=== PATIENT | female | born 1950 | race Two or more races ===

== ENCOUNTER 2024-09-27 09:05 | Inpatient (IN) | payer OTHER ==
[~2024-09-27] VITALS: Ht 152.4 cm; Wt 74.1 kg
[~2024-09-27 09:05] MED LIST: ALBUAER3 IN; LOSA-535 PO; PRAV20TA3 PO
[2024-09-27] MEDS: ceFAZolin 2 GM/D5W100ml 100 ML IV ONE (09:19)
[2024-09-27] MEDS: CELECOXIB 100 MG CAP ONE (09:37)
[2024-09-27] MEDS: PREGABALIN CAPSULE 75 MG CAP ONE (09:38)
[2024-09-27] MEDS: ROPIVACAINE 0.5% (5MG/ML) 20ML AMPULE IJ ONE (11:10)
[2024-09-27] MEDS ORDERED: fentaNYL CITRATE 100 MCG/2 ML VL ONE (11:11)
[2024-09-27] MEDS ORDERED: MIDAZOLAM HCL 2MG/2ML 2ml VIAL (1mg/ml) ONE (11:12)
[2024-09-27] MEDS ORDERED: PROPOFOL 10 MG/ML 20 ML IV ONE (11:13)
[2024-09-27] MEDS: TRANEXAMIC ACID 20 ML ONE (11:16)
[2024-09-27] MEDS: KETOROLAC TROMETH 30 MG/ML 1ML VIAL ONE (11:17)
[2024-09-27] MEDS ORDERED: MORPHINE SULF PF 5 MG/10 ML VIAL ONE (11:25)
[2024-09-27] MEDS: CELECOXIB 100 MG CAP PO ONE (11:40)
[2024-09-27] MEDS: PREGABALIN CAPSULE 75 MG CAP PO ONE (11:40)
[2024-09-27] MEDS ORDERED: ePHEDrine SULFATE 50 MG/ML AMP ONE (12:16)
[2024-09-27] MEDS: BUPIVACAINE HCL 0.25% P/F 10 ML VIAL ONE (12:55)
[2024-09-27] MEDS: VANCOMYCIN HCL 1000 MG VL ONE (12:55)
[2024-09-27] MEDS ORDERED: HYDROmorphone HCL 2 MG/ML VL/or syr IV PRN (13:45)
[2024-09-27] MEDS ORDERED: hydrALAZINE HCL 20 MG/ML VL IV PRN (13:45)
[2024-09-27] MEDS ORDERED: DOCUSATE SOD 100 MG CAP PO PRN (15:45)
[2024-09-27] MEDS: SODIUM CHLORIDE 0.9% 1,000 ML IV SCH (15:53)
--- NOTE | 2024-09-27 15:56 | DVHHP2 ---
History of Present Illness Reason for Visit: Right knee osteoarthritis History of Present Illness Estefany Carlisle is a 74-year-old female with past medical history of hypertension, hyperlipidemia, asthma, bilateral cataract surgery, hernia repair, tonsillectomy, and breast augmentation who had a right TKA today. Patient is currently in recovery bed 3. Patient currently reports 0/10 pain also denies smoking, marijuana use, illicit drug use, drinking, chest pain, shortness of breath, fever, chills, nausea, vomiting, diarrhea, lightheadedness, and dizziness. Cardiovascular: HTN, hyperipidemia Pulmonary: Asthma Past Medical History bilateral cataract surgery Past Surgical History: Hernia Repair, Other (Breast augmentation), Tonsillec danyelle Family History: None Smoke: No ALCOHOL: none Drugs: None Lives: with Family Domestic Violence: Neg Review of Systems Constitutional: No: Fever, Chills, Sweats, Weakness, Malaise, Other Eyes: No: Pain, Vision change, Conjunctivae inflammation, Eyelid inflammation, Other, Redness ENT: No: Ear pain, Ear discharge, Nose pain, Nose discharge, Nose congestion, Mouth pain, Mouth swelling, Throat pain, Throat swelling, Other Respiratory: No: Cough, Dry, Shortness of breath, SOB with excertion, Wheezing, Hemoptysis, Pleuritic Pain, Sputum, Wheezing, Other Cardiovascular: No: Chest Pain, Palpitations, Orthopnea, Paroxysmal Noc. Dyspnea, Edema, Lt Headedness, Other Gastrointestinal: No: Nausea, Vomiting, Abdominal Pain, Diarrhea, Constipation, Melena, Hematochezia, Other Genitourinary: No Dysuria, No Frequency, No Incontinence, No Hematuria, No Re tention, No Other Musculoskeletal: No: other, neck pain, shoulder pain, arm pain, back pain, hand pain, leg pain, foot pain Skin: No: Rash, Lesions, Jaundice, Bruising, Other Neurological: No: Weakness, Numbness, Incoordination, Change in speech, Confusion, Seizures, Other Allergies: Coded Allergies: Acetaminophen (Verified Allergy, Severe, tongue swells, SOB, hives, 09/23/24) Dextromethorphan (Unverified Allergy, Severe, tongue swells, SOB, hives, 09/23/24) Doxylamine (Unverified Allergy, Severe, tongue swells, SOB, hives, 1 11/24/23) Ethanol (Unverified Allergy, Severe, tongue swells, SOB, hives, 09/23/24) Pseudoephedrine (Unverified Allergy, Severe, tongue swells, SOB, hives, 09/23/24) Medications Current Medications Medications Dose Ordered Sig/Shweta Route Start Time Stop Time Status Last Admin Dose Admin Sodium Chloride 1,000 ml @ 60 mls/hr [id number] IV 09/27/24 15:45 UNV Ondansetron HCl 4 mg Q4HP PRN IV 09/27/24 15:45 UNV Docusate Sodium 100 mg BIDPRN PRN PO 09/27/24 15:45 UNV Morphine Sulfate 2 mg Q4HPRN PRN IV 09/27/24 15:45 UNV Exam Vital Signs Vital Signs Date Time Temp Pulse Resp B/P (MAP) Pulse Ox O2 Delivery O2 Flow Rate FiO2 09/27/24 15:10 88 16 117/64 (81) 99 09/27/24 13:50 Room Air 09/27/24 13:27 8.0 09/27/24 13:27 97.3 97.3 General Appearance: Alert, Oriented X3, Cooperative, No acute distress HEENT: Atraumatic, PERRLA, EOMI, Mucous membr. moist/pink Respiratory: Clear to auscultation, Normal air movement Cardiovascular: Regular rate, Normal S1, Normal S2, No murmurs Abdominal: No tenderness, No hepatospenomegaly Extremities: No clubbing, No cyanosis, No edema, Normal pulses, No tenderness/swelling Skin: No rashes, No breakdown, No significant lesion Neuro: Normal speech, Normal tone, Sensation intact Psych/Mental Status: Mental status NL, Mood NL Assessment/Plan Assessment/Plan Assessment/Plan: Right TKA History of right knee osteoarthritis am labs stool softeners pain mgmt antiemetics keep dressing cdi HTN continue home meds Asthma resp txs HLD continue home meds FEN/PPX diet - adat ivf scds pud ppx not indicated no hx of GERD rounding team ask if want anticoags Discussed plan of care with patient and nurse Home medications reconciled Admit to tele Plan discussed with: Patient My Orders Orders - ALLEN OCHOA Procedure Category Date Status Time Admit ADMIT 09/27/24 Transmitted 15:31 Allergies LUANNE 09/27/24 Transmitted 15:31 Code Status CODE 09/27/24 Transmitted 15:31 Sodium Chloride 0.9% PHA 09/27/24 Logged 15:45 Ondansetron Hcl PHA 09/27/24 Logged (Zofran) 15:45 Docusate Sodium PHA 09/27/24 Logged Capsule (Colace 15:45 Clear Liq Diet DIET 09/27/24 Transmitted Dinner Morphine Sulfate PHA 09/27/24 Logged Injection 15:45 Complete Blood Count LAB 09/28/24 Verified 04:00 Basic Metabolic Panel LAB 09/28/24 Verified 04:00 Date of Service: Sep 27, 2024 Billing Provider: ALLEN OCHOA Common Visit Codes: [id number] INP/OBS CARE (MOD) ALLEN OCHOA Sep 27, 2024 15:56
[2024-09-27] MEDS ORDERED: ALBUTEROL SULF 2.5 MG/0.5ML(0.5%) NEB SOLN NEB PRN (16:00)
[2024-09-27] MEDS ORDERED: IPRATROPIUM BROM 0.5 MG/2.5ML INH SOL NEB PRN (16:00)
[2024-09-27] MEDS: ONDANSETRON HCL 4 MG/2 ML VIAL IV ONE (16:11)
[2024-09-27 16:28] VITALS: BP 155/88; PULSE 108; RESP 18; TEMP 97.2; O2SAT 91
[2024-09-27 16:47] VITALS: BP 155/88; PULSE 113; RESP 16; TEMP 97.2; O2SAT 89
[2024-09-27 20:00] VITALS: PULSE 104; PULSE 94; RESP 17; O2SAT 94
[2024-09-27 20:40] VITALS: BP 114/67; PULSE 68; RESP 18; TEMP 98.2; O2SAT 94
[2024-09-27 21:00] VITALS: BP 121/86; PULSE 104; RESP 17; TEMP 98.1; O2SAT 94
[2024-09-28] VITALS (10 sets, daily range): BP systolic 103–140; BP diastolic 53–79; PULSE 60–107; RESP 16–20; TEMP 98.2–99.6; O2SAT 92–95
[2024-09-28] MEDS: MORPHINE SULFATE INJ 2 MG/ml SYRG IV PRN (06:21)
[2024-09-28] MEDS: ONDANSETRON HCL 4 MG/2 ML VIAL IV PRN (06:21)
--- NOTE | 2024-09-28 06:29 | DVHOP2 ---
Operative Report - 2 Report Details Date: 09/27/24 Preop Diagnosis: Right knee osteoarthritis Postop Diagnosis: as above Surgeon: Will LOPEZ Stage Driver: Te JACKSON Anesthesiologist: Cassandra LOPEZ Anesthesia: General, Regional Implant: [employer] see implant log Consent: The patient was informed of the risks and benefits of the procedure. These include but are not limited to complications of anesthesia, postoperative infection, incomplete relief of symptoms, recurrence of symptoms, damage to blood vessels, nerves and tendons, deep venous thrombosis, pulmonary embolism and possible need for repeat surgery in the future. Estimated Blood Loss: 50 cc Name of Procedure Performed Right total knee arthroplasty with computer navigation Procedure Details Procedure Details: FINDINGS: degenerative disease with grade IV changes with valgus deformity INDICATION: This patient has failed non-operative treatments for knee arthritis and is now indicated for a total knee replacement. Preoperatively in the waiting area as well as in the office, I had a long discussion with the patient regardi ng the plan, the expected outcome, the risks, benefits, and alternatives of surgery. The risks include, but are not limited to, infection (which may require future surgery and removal of implants) , bleeding (which may require a transfusion), damage to nerves, arteries, veins, tendons, muscles and other adjacent structures. Also discussed the possibilities of intraoperative fractur es, implant loosening, heterotopic bone formation, and revision for variety of reasons, and medical complications etc. This was discussed at length and consent has been obtained. DESCRIPTION OF PROCEDURE: In the preoperative holding area, the consent was reviewed and the appropriate extremity was verified by the patient and marked with my initials. The patient was then transferred to the operating theatre. Appropriate anesthesia was induced. All bony prominences were well padded. A time out was performed verifying the side and site of surgery according to standard protocol. Preoperative antibiotics were given 10 minutes prior to tourniquet inflation. Tranexamic was given. A well padded thigh tourniquet was applied. The extremity was then prepped and draped in the usual sterile fashion. The extremity was exsanguinated and the tourniquet was inflated. We then made a mid-line incision, which we continued to the underlying capsular tissue. We performed a medial parapatellar arthrotomy. We periosteally exposed the proximal tibia, excised the anterior fat pad and synovium from the distal aspect of the femur. We then subluxed the patella and brought the knee up into flexion. The lateral meniscus, ACL, and PCL were released. We used the appropriate guide with attached computer navigation to secure the distal femoral cutting block to the femur with pins and completed the distal femoral cut in 0 degrees to the mechanical axis with an oscillating saw. We removed the distal femoral cutting block and turned our attention to the tibia. We used the extramedullary tibial alignment guide with computer navigation to secure the proximal tibial cutting block to the tibia with pins, setting it for a 1mm cut from the more involved side, medially and completed the proximal tibial cut. We then used the spacer block and alignment remigio to check the varus- valgus angle of our cuts and the extension gap. We marked our femoral anatomy, including Nicholas's line and the epicondylar axis. Using that as a rotational guide, we used the sizing guide to size our femur properly, using a stylus to ensure there would be no notching. We then used the AP cutting guide to make our anterior and posterior cuts and chamfer cuts with an oscillating saw. We again checked the flexion and extension gaps and coronal balancing. Next, we sized our tibia and secured a baseplate with appropriate rotation with pins. We placed a trial femur in position and completed preparation of the notch with reamers and box osteotome and placed a t rial notch in position. We used trials to choose our liner size and then placed the liner in place and reduced the knee . At this point, we checked our seven parameters: 1) Limb alignment 2) Extension 3) Flexion against gravity 4) Flexion stability 5) Varus-valgus balancing 6) Component rotation 7) Patella tracking We were satisfied with these and removed all trials with the exception of the baseplate. We completed preparation of the tibia with the appropriate reamer and keel impactor and then removed the baseplate. We placed a bone plug in the distal femur and then irrigated and dried all bony surfaces and injected our pain cocktail. Cement with antibiotics was hand-mixed on the back table. We thumb impacted cement into the proximal tibia, distal femur impacted our tibial, femoral components into position. Excess cement was removed with curettes. We impacted our liner and reduced the knee and held it with axial loading until all cement hardened. We did a phoebe-articular cocktail block Once all cement had hardened, we brought the knee back up into flexion and used an osteotome to remove excess cement. We released the tourniquet and achieved hemostasis where necessary. A dilute betadine solution (17.5mL in 500mL saline) was used to wash the joint and left to sit for 3 minutes. This was then irrigated out with copious amounts of pulse lavage. We sprinkled 1g vancomycin powder below the fascia and 1g above the fascia. We copiously irrigated the knee. We re-checked our seven parameters. We closed our capsular incision with a PDS style suture. We irrigated further. We closed the subcutaneous tissue with Vicryl suture and re-approximated the skin with [place]. We verified all lower extremity compartments were soft and compressible and that we had intact distal pulses. We wrapped the extremity in sterile Webril and gurvinder bandage. The patient was transferred to the recovery room in stable condition. Condition Good Disposition Still a Patient JACKSON GUERRERO MD Sep 28, 2024 06:29
[2024-09-28 06:58] LABS: Anion Gap 8 (5-15); Carbon Dioxide 26 mmol/L (20-31); Potassium 4.5 mmol/L (3.5-5.1); Sodium 142 mmol/L (136-145)
[2024-09-28 07:00] LABS: Calcium 9.3 mg/dL (8.7-10.4)
[2024-09-28 07:01] LABS: Chloride 108 mmol/L (98-107)
[2024-09-28 07:05] LABS: BUN/Creatinine Ratio 8.6 (10.0-20.0)
[2024-09-28 07:06] LABS: Basophils # (auto) 0.1 10 ^3/uL (0-0.2); Basophils % (auto) 0.7 % (0.0-2.0); Eosinophils # (auto) 0.1 10 ^3/uL (0-0.8); Eosinophils % (auto) 0.7 % (0.0-7.0); Hematocrit 36.6 % (36.0-46.0); Hemoglobin 12.6 g/dL (12.2-16.2); Lymphocytes # (auto) 1.1 10 ^3/uL (0.4-5.4); Lymphocytes % (auto) 12.8 % (10.0-50.0); Mean Corpuscular Hemoglobin 31.6 pg (28.0-32.0); Mean Corpuscular Hgb Conc. 34.4 g/dL (32.0-36.0); Mean Corpuscular Volume 91.9 fL (80.0-100.0); Monocytes % (auto) 11.3 % (0.0-12.0); Neutrophils # (auto) 6.5 10 ^3/uL (1.6-8.6); Neutrophils % (auto) 74.5 % (37.0-80.0); Platelet Count (auto) 195 10^3/uL (140-450); Red Blood Cells 3.99 10^6/uL (4.0-5.20); Red Cell Distribution Width 12.8 % (11.8-14.3); White Blood Cell 8.7 10^3/uL (4.4-10.8)
[2024-09-28 07:07] LABS: Blood Urea Nitrogen 7 mg/dL (9-23); Glucose 117 mg/dL (74-106)
[2024-09-28] MEDS: PRAVASTATIN SODIUM 20 MG TAB PO SCH (09:00)
[2024-09-28] MEDS: LOSARTAN POTASSIUM 50 MG TAB PO SCH (09:01)
[2024-09-28] MEDS ORDERED: PATIENTS OWN MEDICATION (Losartan Potassium 100 MG) PO SCH (10:00)
--- NOTE | 2024-09-28 12:17 | DVHPN2 ---
Reviewed: Care Plan, H&P, Labs, Medications, Previous Orders, Radiology Changes from previous H/P or p: No Changes Eyes: No Pain, No Vision change, No Conjunctivae inflammation, No Eyelid inflammation, No Other, No Redness ENT: No Ear pain, No Ear discharge, No Nose pain, No Nose discharge, No Nose congestion, No Mouth pain, No Mouth swelling, No Throat pain, No Throat swelling, No Other Cardiovascular: No Chest Pain, No Palpitations, No Orthopnea, No Paroxysmal Noc. Dyspnea, No Edema, No Lt Headedness, No Other Respiratory: No Cough, No Dry, No Shortness of breath, No SOB with excertion, No Wheezing, No Hemoptysis, No Pleuritic Pain, No Sputum, No Other Gastrointestinal: No Nausea, No Vomiting, No Abdominal Pain, No Diarrhea, No Constipation, No Melena, No Hematochezia, No Other Genitourinary: No Dysuria, No Frequency, No Incontinence, No Hematuria, No Retention, No Other Musculoskeletal: No other, No neck pain, No shoulder pain, No arm pain, No back pain, No hand pain, No leg pain, No foot pain Skin: No Rash, No Lesions, No Jaundice, No Bruising, No Other Objective Vitals Vital Signs Date Time Temp Pulse Resp B/P (MAP) Pulse Ox O2 Delivery O2 Flow Rate FiO2 09/28/24 09:01 131/65 09/28/24 09:00 99.0 104 20 94 99.0 09/28/24 08:00 Nasal Cannula* 2 28 Intake/Output Intake and Output 09/28/24 07:00 Intake Total 150 ml Balance 150 ml Intake Oral 50 ml IV Total 100 ml # Voids 1 Medications Current Medications Medications Dose Ordered Sig/Shweta Route Start Time Stop Time Status Last Admin Dose Admin Sodium Chloride 1,000 ml @ 60 mls/hr [id number] IV 09/27/24 15:45 09/28/24 08:25 60 MLS/HR Ondansetron HCl 4 mg Q4HP PRN IV 09/27/24 15:45 09/28/24 06:21 4 MG Docusate Sodium 100 mg BIDPRN PRN PO 09/27/24 15:45 Morphine Sulfate 2 mg Q4HPRN PRN IV 09/27/24 15:45 09/28/24 06:21 2 MG Pravastatin Sodium 20 mg DAILY PO 09/28/24 10:00 09/28/24 09:00 20 MG Patient Own Medication 100 mg DAILY PO 09/28/24 10:00 UNV Albuterol 2.5 mg Q4HPRN PRN NEB 09/27/24 16:00 Ipratropium [place] 0.5 mg Q4HPRN PRN NEB 09/27/24 16:00 Losartan Potassium 100 mg DAILY PO 09/28/24 10:00 09/28/24 09:01 100 MG Laboratory Results Laboratory Tests 09/28/24 06:11 Chemistry Test 09/28/24 06:11 Calcium Level 9.3 mg/dL (8.7-10.4) Labs and/or images reviewed: Labs reviewed by me, Image(s) reviewed by me Assessment/Plan Assessment/Plan Severe DJD right knee status post Right total knee arthroplasty by Dr. Stone on 09-28-24 Hypotension Hypercholesterolemia Asthma Plan discussed with: Patient Date of Service: Sep 28, 2024 Billing Provider: MARY CHAVEZ MD Common Visit Codes: [id number] INP/OBS CARE(HIGH) MARY CHAVEZ MD Sep 28, 2024 12:17
[2024-09-29] VITALS (11 sets, daily range): BP systolic 117–135; BP diastolic 65–79; PULSE 83–117; RESP 15–18; TEMP 97.4–99.2; O2SAT 91–97
--- NOTE | 2024-09-29 07:47 | DVHDS2 ---
Discharge Summary Date of Admission Sep 27, 2024 at 15:31 Date of Discharge: Sep 29, 2024 Wounds: 1. You will likely have a gel-type dressing over your wound, you may keep this on for 7-14 days after leaving the hospital unless it becomes soiled or your skin becomes irritated. If a wound vac dressing is placed on your knee this is to be left in place for one week and will be changed as needed. After your remove the dressing or wound vac, the home health nurse may place clean dry dressing over your wound. Keep wound covered, clean and dry for two weeks. 2. [place] will be removed during your initial post-op visit. If you have concerns about our wound, please call the office immediately. 3. If there is drainage from your wound, change the dressing daily until it stops. If drainage lasts more than 10 days, call our office. 4. Low grade (up to 100 degrees) fever is common for the first week after surgery. You should take your temperature daily. If you have fevers of 101 or more, please call the office. Labs/Diagnostic Data: Laboratory Results Test 09/28/24 06:11 White Blood Count 8.7 10^3/uL (4.4-10.8) Red Blood Count 3.99 10^6/uL (4.0-5.20) Hemoglobin 12.6 g/dL (12.2-16.2) Hematocrit 36.6 % (36.0-46.0) Mean Corpuscular Volume 91.9 fL (80.0-100.0) Mean Corpuscular Hemoglobin 31.6 pg (28.0-32.0) Mean Corpuscular Hemoglobin Concent 34.4 g/dL (32.0-36.0) Red Cell Distribution Width 12.8 % (11.8-14.3) Platelet Count 195 10^3/uL (140-450) Mean Platelet Volume 8.5 fL (6.9-10.8) Neutrophils (%) (Auto) 74.5 % (37.0-80.0) Lymphocytes (%) (Auto) 12.8 % (10.0-50.0) Monocytes (%) (Auto) 11.3 % (0.0-12.0) Eosinophils (%) (Auto) 0.7 % (0.0-7.0) Basophils (%) (Auto) 0.7 % (0.0-2.0) Neutrophils # (Auto) 6.5 10 ^3/uL (1.6-8.6) Lymphocytes # (Auto) 1.1 10 ^3/uL (0.4-5.4) Monocytes # (Auto) 1.0 10 ^3/uL (0-1.3) Eosinophils # (Auto) 0.1 10 ^3/uL (0-0.8) Basophils # (Auto) 0.1 10 ^3/uL (0-0.2) Nucleated Red Blood Cells 0.0 % Sodium Level 142 mmol/L (136-145) Potassium Level 4.5 mmol/L (3.5-5.1) Chloride Level 108 mmol/L (98-107) Carbon Dioxide Level 26 mmol/L (20-31) Anion Gap 8 (5-15) Blood Urea Nitrogen 7 mg/dL (9-23) Creatinine 0.81 mg/dL (0.550-1.02) Glomerular Filtration Rate Calc 76 mL/min (>90) BUN/Creatinine Ratio 8.6 (10.0-20.0) Serum Glucose 117 mg/dL (74-106) Calcium Level 9.3 mg/dL (8.7-10.4) Other Laboratory Tests 09/28/24 06:11 Brief Hx & Hospital Course: s/p TKA Condition at Discharge: Good Final Diagnosis/Problems List as above Discharge Disposition: Home with Health Services Discharge Instruct/Medications Diet: Regular Diet comment: may advance diet as tolerated. Drink plenty of fluids and avoid alcohol while taking narcotics Activity: See Comment Activity comment: 1.You can bear as much weight as you tolerate on your knee unless specifically instructed otherwise. You may use the walking aid which you were discharged with and switch to a cane whenever you feel comfortable doing so. You should use an assistive device until you can walk comfortably without it. Keep in mind that every patient moves at their own speed of recovery so take your time. 2.A physical therapist will visit you at home. 3.Use CPM machine as instructed 4.High impact activity such as jumping, aerobics, tennis, and skiing are not permitted during the first 3 months after surgery. These activities can contribute to accelerated wear and should be done with caution after this time. Discuss this with your surgeon if you have questions. 5.Although a bath or whirlpool is NOT permitted during the first 2-3 weeks, you may shower as soon as you get home from the hospital provided there is no wound drainage. Place a dressing or covering over the wound when you shower. 6.Swimming is not permitted until the wound is healed, which typically occurs approximately 3-4 weeks after surgery. Follow Up/Referral: 1.Driving is not permitted within the first 2 weeks. 2.Your first postoperative visit will take place 2 weeks after discharge. Please call the office once you are home from the hospital to arrange this appointment. 3.Antibiotic preventative treatment is required before dental or other invasive procedures. Please ask your surgeon about this at your first postoperative visit. If you experience chest pain, shortness of breath or severe painful calf swelling, go to the nearest emergency room to be evaluated. Please call our office once your situation is stabilized. Medications: 1.You will be discharged with pain medication, a blood thinner (unless you were previously on a blood thinner prior to surgery) and stool softener. Please follow the instructions regarding these medications as provided by your nurse at the hospital upon discharge. 2.Blood clots in the leg are a known complication of surgery. It is very important that you take the medication to protect against clots. Depending on what you are discharged on typically it is Lovenox 40mg daily for 2 weeks or Aspirin 325mg twice daily for 4 weeks. After you finish this, you should then take baby Aspirin (81mg) for 2 weeks. 3.You should restart all of your prescription medications once discharged unless specifically instructed otherwise. 4.Herbal supplements may be restarted 2 weeks after surgery. 5.If you have been given Coumadin as a blood thinner, please follow up with your pastry supervisor during the first two weeks after surgery to review medications and overall medical well-being. 6.Please note that narcotic pain medication may cause constipation. Please remember to take stool softeners (Colace) when using narcotics to help reduce the change of constipation. You should not use alcohol together with narcotic medication. Discharge Statement: "Patient was advised to return to the ER or call 911 if any headaches, dizziness, shortness of breath, chest pain, abdominal pain, bleeding, fevers, or worsening of medical condition. Patient was counseled about treatment plan, medications, possible side effects, patientverbalized understanding. All questions were answered to the best of my ability. This discharge took greater then 30 minutes in planning, reviewing documentation, counseling the patient, and discussing with other team members." ASSESSMENT ASSESSMENT Assessment as above VALENCIA CHRISTENSEN NP Sep 29, 2024 07:47
[2024-09-29] MEDS: oxyCODONE HCL 5MG TAB PO PRN (08:15)
[2024-09-30 01:00] VITALS: BP 120/74; PULSE 79; RESP 17; TEMP 98.6; O2SAT 95
[2024-09-30 05:00] VITALS: BP 127/70; PULSE 103; RESP 16; TEMP 98.4; O2SAT 95
[2024-09-30 08:20] VITALS: PULSE 100; RESP 14; O2SAT 96
[2024-09-30 09:00] VITALS: BP 125/78; PULSE 100; RESP 14; TEMP 98.3; O2SAT 96
--- NOTE | 2024-09-30 12:47 | DVHPN2 ---
Reviewed: Care Plan, H&P, Labs, Medications, Previous Orders, Radiology Changes from previous H/P or p: No Changes Eyes: No Pain, No Vision change, No Conjunctivae inflammation, No Eyelid inflammation, No Other, No Redness ENT: No Ear pain, No Ear discharge, No Nose pain, No Nose discharge, No Nose congestion, No Mouth pain, No Mouth swelling, No Throat pain, No Throat swelling, No Other Cardiovascular: No Chest Pain, No Palpitations, No Orthopnea, No Paroxysmal Noc. Dyspnea, No Edema, No Lt Headedness, No Other Respiratory: No Cough, No Dry, No Shortness of breath, No SOB with excertion, No Wheezing, No Hemoptysis, No Pleuritic Pain, No Sputum, No Other Gastrointestinal: No Nausea, No Vomiting, No Abdominal Pain, No Diarrhea, No Constipation, No Melena, No Hematochezia, No Other Genitourinary: No Dysuria, No Frequency, No Incontinence, No Hematuria, No Retention, No Other Musculoskeletal: No other, No neck pain, No shoulder pain, No arm pain, No back pain, No hand pain, No leg pain, No foot pain Skin: No Rash, No Lesions, No Jaundice, No Bruising, No Other Objective Vitals Vital Signs Date Time Temp Pulse Resp B/P (MAP) Pulse Ox O2 Delivery O2 Flow Rate FiO2 09/30/24 09:53 125/78 09/30/24 09:00 98.3 100 14 96 98.3 09/30/24 08:20 Nasal Cannula* 1 24 Intake/Output Intake and Output 09/30/24 07:00 Intake Total 1500 ml Balance 1500 ml Intake Oral 1500 ml # Voids 3 Medications Current Medications Medications Dose Ordered Sig/Shweta Route Start Time Stop Time Status Last Admin Dose Admin Sodium Chloride 1,000 ml @ 60 mls/hr [id number] IV 09/27/24 15:45 09/30/24 09:57 60 MLS/HR Ondansetron HCl 4 mg Q4HP PRN IV 09/27/24 15:45 09/28/24 20:29 4 MG Docusate Sodium 100 mg BIDPRN PRN PO 09/27/24 15:45 Morphine Sulfate 2 mg Q4HPRN PRN IV 09/27/24 15:45 09/28/24 20:32 2 MG Pravastatin Sodium 20 mg DAILY PO 09/28/24 10:00 09/30/24 09:53 20 MG Patient Own Medication 100 mg DAILY PO 09/28/24 10:00 UNV Albuterol 2.5 mg Q4HPRN PRN NEB 09/27/24 16:00 Ipratropium [place] 0.5 mg Q4HPRN PRN NEB 09/27/24 16:00 Losartan Potassium 100 mg DAILY PO 09/28/24 10:00 09/30/24 09:53 100 MG Oxycodone HCl 5 mg Q4HP PRN PO 09/29/24 07:15 09/30/24 08:17 5 MG Laboratory Results Laboratory Tests 09/28/24 06:11 Labs and/or images reviewed: Labs reviewed by me, Image(s) reviewed by me Assessment/Plan Assessment/Plan Severe DJD right knee status post Right total knee arthroplasty by Dr. Stone on 09-28-24 Hypotension Hypercholesterolemia Asthma Plan discussed with: Patient My Orders Orders - MARY CHAVEZ MD Procedure Category Date Status Time Abg W/ Co-Ox RT 09/30/24 Logged 08:00 Mechanical Soft Diet DIET 09/29/24 Transmitted Dinner Date of Service: Sep 30, 2024 Billing Provider: MARY CHAVEZ MD Common Visit Codes: [id number] INP/OBS CARE(HIGH) MARY CHAVEZ MD Sep 30, 2024 12:47
[2024-09-30] MEDS ORDERED: OXYC-998 PO (12:48)
[2024-09-30] MEDS ORDERED: RIVA10TA PO (12:51)
--- NOTE | 2024-09-30 12:57 | DVHDS2 ---
Discharge Summary Date of Admission Sep 27, 2024 at 15:31 Date of Discharge: Sep 30, 2024 Admitting Diagnosis Severe DJD right knee Wounds: Total right knee arthroplasty Labs/Diagnostic Data: Laboratory Results Test 09/28/24 06:11 White Blood Count 8.7 10^3/uL (4.4-10.8) Red Blood Count 3.99 10^6/uL (4.0-5.20) Hemoglobin 12.6 g/dL (12.2-16.2) Hematocrit 36.6 % (36.0-46.0) Mean Corpuscular Volume 91.9 fL (80.0-100.0) Mean Corpuscular Hemoglobin 31.6 pg (28.0-32.0) Mean Corpuscular Hemoglobin Concent 34.4 g/dL (32.0-36.0) Red Cell Distribution Width 12.8 % (11.8-14.3) Platelet Count 195 10^3/uL (140-450) Mean Platelet Volume 8.5 fL (6.9-10.8) Neutrophils (%) (Auto) 74.5 % (37.0-80.0) Lymphocytes (%) (Auto) 12.8 % (10.0-50.0) Monocytes (%) (Auto) 11.3 % (0.0-12.0) Eosinophils (%) (Auto) 0.7 % (0.0-7.0) Basophils (%) (Auto) 0.7 % (0.0-2.0) Neutrophils # (Auto) 6.5 10 ^3/uL (1.6-8.6) Lymphocytes # (Auto) 1.1 10 ^3/uL (0.4-5.4) Monocytes # (Auto) 1.0 10 ^3/uL (0-1.3) Eosinophils # (Auto) 0.1 10 ^3/uL (0-0.8) Basophils # (Auto) 0.1 10 ^3/uL (0-0.2) Nucleated Red Blood Cells 0.0 % Sodium Level 142 mmol/L (136-145) Potassium Level 4.5 mmol/L (3.5-5.1) Chloride Level 108 mmol/L (98-107) Carbon Dioxide Level 26 mmol/L (20-31) Anion Gap 8 (5-15) Blood Urea Nitrogen 7 mg/dL (9-23) Creatinine 0.81 mg/dL (0.550-1.02) Glomerular Filtration Rate Calc 76 mL/min (>90) BUN/Creatinine Ratio 8.6 (10.0-20.0) Serum Glucose 117 mg/dL (74-106) Calcium Level 9.3 mg/dL (8.7-10.4) Other Laboratory Tests 09/28/24 06:11 Brief Hx & Hospital Course: 74-year-old female with severe DJD right knee underwent right total knee arthroplasty by In a year and admitted for pain management. Patient was given pain medications. Cleared for discharge by ortho. patient is ambulating with a walker postop course uneventful. prescription for oxycodone and Xarelto sent to the pharmacy Consults/Reason for consult Orthopedic Dr Stone Operations or Procedures Total right knee arthroplasty Condition at Discharge: Good Final Diagnosis/Problems List Severe DJD right knee status post Right total knee arthroplasty by Dr. Stone on 09-28-24 Hypertension Hypercholesterolemia Asthma Discharge Disposition: Home Discharge Instruct/Medications Diet: Regular Diet comment: may advance diet as tolerated. Drink plenty of fluids and avoid alcoholwhile taking narcotics Activity: See Comment Activity comment: 1.You can bear as much weight as you tolerate on your knee unlessspecifically instructed otherwise. You may use the walking aid which youwere discharged with and switch to a cane whenever you feel comfortabledoing so. You should use an assistive device until you can walkcomfortably without it. Keep in mind that every patient moves at theirown speed of recovery so take your time.2.A physical therapist will visit you at home. 3.Use CPM machine as instructed4.High impact activity such as jumping, aerobics, tennis, and skiing arenot permitted during the first 3 months after surgery. These activitiescan contribute to accelerated wear and should be done with caution afterthis time. Discuss this with your surgeon if you have questions.5.Although a bath or whirlpool is NOT permitted during the first 2-3weeks, you may shower as soon as you get home from the hospital providedthere is no wound drainage. Place a dressing or covering over the woundwhen you shower.6.Swimming is not permitted until the wound is healed, which typicallyoccurs approximately 3-4 weeks after surgery. Follow Up/Referral: 1.Driving is not permitted within the first 2 weeks.2.Your first postoperative visit will take place 2 weeks after discharge.Please call the office once you are home from the hospital to arrange thisappointment.3.Antibiotic preventative treatment is required before dental or otherinvasive procedures. Please ask your surgeon about this at your firstpostoperative visit.If you experience chest pain, shortness of breath or severe painful calfswelling, go to the nearest emergency room to be evaluated. Please callour office once your situation is stabilized. Medications: 1.You will be discharged with pain medication, a blood thinner (unless youwere previously on a blood thinner prior to surgery) and stool softener.Please follow the instructions regarding these medications as provided byyour nurse at the hospital upon discharge.2.Blood clots in the leg are a known complication of surgery. It is veryimportant that you take the medication to protect against clots. Dependingon what you are discharged on typically it is Lovenox 40mg daily for 2weeks or Aspirin 325mg twice daily for 4 weeks. After you finish this, youshould then take baby Aspirin (81mg) for 2 weeks.3.You should restart all of your prescription medications once dischargedunless specifically instructed otherwise.4.Herbal supplements may be restarted 2 weeks after surgery.5.If you have been given Coumadin as a blood thinner, please follow upwith your rhinestone setter during the first two weeks after surgery to reviewmedications and overall medical well-being.6.Please note that narcotic pain medication may cause constipation. Pleaseremember to take stool softeners (Colace) when using narcotics to helpreduce the change of constipation. You should not use alcohol togetherwith narcotic medication. 35 (Time Taken for discharge summary 35 minutes) Discharge Statement: "Patient was advised to return to the ER or call 911 if any headaches, dizziness, shortness of breath, chest pain, abdominal pain, bleeding, fevers, or worsening of medical condition. Patient was counseled about treatment plan, medications, possible side effects, patientverbalized understanding. All questions were answered to the best of my ability. This discharge took greater then 30 minutes in planning, reviewing documentation, counseling the patient, and discussing with other team members." ASSESSMENT ASSESSMENT Assessment Severe DJD right knee status post Right total knee arthroplasty by Dr. Stone on 09-28-24 Hypotension Hypercholesterolemia Asthma Date of Service: Sep 30, 2024 Billing Provider: MARY CHAVEZ MD Common Visit Codes: 86371-OJQ/OBS DISCH DAY >30min MARY CHAVEZ MD Sep 30, 2024 12:57
[2024-09-30 13:00] VITALS: BP 117/64; PULSE 112; RESP 18; TEMP 98.6; O2SAT 96
[2024-09-30 13:19] VITALS: BP 117/64; PULSE 112; RESP 18; TEMP 98.6; O2SAT 96
== END 2024-09-30 15:10 | disposition home health service (06) | DRG 469 ==
LOC: SUR 09:05 → TELE 15:31 → TELE-WESTW 16:32
PROVIDERS: ATTEND Family Medicine
PROC: 0SRC0J9 Replacement of Right Knee Joint with Synthetic Substitute, Cemented, Open Approach (ICD-10-PCS; principal; 2024-09-27 11:45)
DX: M17.11 Unilateral primary osteoarthritis, right knee (principal); J96.01 Acute respiratory failure with hypoxia; J45.901 Unspecified asthma with (acute) exacerbation; I95.9 Hypotension, unspecified; E78.00 Pure hypercholesterolemia, unspecified; I10 Essential (primary) hypertension; M21.061 Valgus deformity, not elsewhere classified, right knee; Z88.6 Allergy status to analgesic agent; Z79.899 Other long term (current) drug therapy
CPT/HCPCS: 36415; 36600; 80048; 82805; 85025; 86850; 86900; 86901; 97110; 97116; 97163; 97530; G0378; J1885; J2250; J2405; J2704; J3490

== ENCOUNTER 2024-10-16 10:18 | Emergency (ER) | payer OTHER ==
[~2024-10-16] VITALS: Ht 152.4 cm; Wt 65.0 kg
[~2024-10-16 10:18] MED LIST changes: +OXYC-998 PO; +RIVA10TA PO
--- NOTE | 2024-10-16 11:19 | ED.PDOC ---
HPI Allergic reaction HPI Comments A 74 YEAR OLD FEMALE PRESENTS TO THE ED WITH CHIEF COMPLAINT OF ALLERGIC REACTION. PATIENT REPORTS THAT SHE HAS BEEN EXPERIENCING HIVES TO HER HANDS, BACK, AND FACE FOR THE PAST 2 DAYS. PATIENT RELAYS THAT SHE HAD RIGHT KNEE REPLACEMENT SURGERY 3 WEEKS AGO AND WAS RECENTLY PRESCRIBED OXYCODONE, WHICH IS WHEN SHE STARTED EXPERIENCING HER RASHES AND BELIEVES THE MEDICATION IS WHAT IS CAUSING HER ALLERGIC REACTION. PATIENT STATES SHE IS ALLERGIC TO TYLENOL. PATIENT DENIES ANY N/V, SOB, CHEST PAIN, DIZZINESS, OR HEADACHE. Chief Complaint: Allergic Reaction Time Seen by MD: 11:14 Primary Care Provider: PENNY Reviewed Notes: Nurses Notes, Medications, Allergies Allergies: Coded Allergies: Acetaminophen (Verified Allergy, Severe, tongue swells, SOB, hives, 09/23/24) Dextromethorphan (Unverified Allergy, Severe, tongue swells, SOB, hives, 09/23/24) Doxylamine (Unverified Allergy, Severe, tongue swells, SOB, hives, 09/23/24) Ethanol (Unverified Allergy, Severe, tongue swells, SOB, hives, 09/23/24) Pseudoephedrine (Unverified Allergy, Severe, tongue swells, SOB, hives, 09/23/24) Home Meds Active Scripts Rivaroxaban (XARELTO) 10 Mg Tab, 1 TAB PO DAILY, #20 TAB Prov:MARY CHAVEZ MD 09/30/24 Oxycodone HCl (Oxycodone Hydrochloride) 10 Mg Tab, 10 MG PO QID PRN, #40 TAB Prov:MARY CHAVEZ MD 09/30/24 Reported Medications Albuterol Sulfate (VENTOLIN MDI) 90 Mcg Ih, 90 MCG IN PRN, INH 09/23/24 Pravastatin Sodium (PRAVACHOL TABLET) 20 Mg Tb, 20 MG PO DAILY, TAB 09/23/24 Losartan Potassium (Losartan Potassium) 100 Mg Tab, 100 MG PO DAILY, TAB 09/23/24 Information Source: Patient Mode of Arrival: Ambulatory Severity: Moderate Rash: Moderate SOB: None Difficulty swallowing: None Pruritus: Moderate Timing: Days Duration: Since onset Prehospital treatment: None Location: Back, Face, Hand Exposed to: Medication Developed: Pruritus, Rash History of: None Modyifying Factors: None Associated Sign and Symptoms: None Past Medical History PAST MEDICAL HISTORY: Arthritis Past Medical History (Other): RIGHT KNEE PAIN Surgical History (Other): RT KNEE REPLACEMENT REGULATORY ANALYST History: Denies all REGULATORY ANALYST Hx Family History Family History: Reviewed,noncontributory to illness Social History Smoker: Non-Smoker Alcohol: Denies ETOH Use Drugs: Denies Drug Use Lives In: Home Constitutional: denies: chills, diaphoresis, fatigue, fever, malaise, sweats, weakness, others EENTM: denies: blurred vision, double vision, ear bleeding, ear discharge, ear drainage, ear pain, ear ringing, eye pain, eye redness, hearing loss, mouth pain, mouth swelling, nasal discharge, nose bleeding, nose congestion, nose pain, photophobia, tearing, throat pain, throat swelling, voice changes, others Respiratory: denies: cough, hemoptysis, orthopnea, SOB at rest, shortness of breath, SOB with excertion, stridor, wheezing, others Cardiovascular: denies: chest pain, dizzy spells, diaphoresis, Dyspnea on exertion, edema, irregular heart beat, left arm pain, lightheadedness, palpitations, PND, syncope, others Gastrointestinal: denies: abdomen distended, abdominal pain, blood streaked bowels, constipated, diarrhea, dysphagia, difficulty swallowing, hematemesis, melena, nausea, poor appetite, poor fluid intake, rectal bleeding, rectal pain, vomiting, others Genitourinary: denies: abnormal vagina bleeding, burning, dyspareunia, dysuria, flank pain, frequency, hematuria, incontinence, pain, , vagina discharge, urgency, others Neurological: denies: dizziness, fainting, headache, left sided numbness, left sided weakness, numbness, paresthesia, pre-existing deficit, right sided numbness, right sided weakness, seizure, speech problems, tingling, tremors, weakness, others Musculoskeletal: denies: back pain, gout, joint pain, joint swelling, muscle pain, muscle stiffness, neck pain, others Integumetry: reports: rash; denies: bruises, change in color, change in hair/nails, dryness, laceration, lesions, lumps, wounds, others Allergic/Immunocompromised: denies: Difficulty Healing, Frequent Infections, Hives, Itching, others Hematologic/Lymphatic: denies: anemia, blood clots, easy bleeding, easy bruising, swollen glands, others Endocrine: denies: excessive hunger, excessive sweating, excessive thirst, excessive urination, flushing, intolerance to cold, intolerance to heat, unexplained weight gain, unexplained weight loss, others Psychiatric: denies: anxiety, bipolar disorder, depression, hopeless, panic disorder, schizophrenia, sleepless, suicidal, others All Other Systems: Reviewed and Negative Physical Exam General Appearance: No Apparent Distress, Normal HEENT: Normal ENT Inspection, PERRL/EOMI, Pharynx Normal, TMs Normal Neck: Full Range of Motion, Non-Tender, Normal, Normal Inspection Respiratory: Chest Non-Tender, Lungs Clear, No Accessory Muscle Use, No Respiratory Distress, Normal Breath Sounds Cardiovascular: No Edema, No JVD, No Murmur, No Gallop, Normal Peripheral Pulses, Regular Rate/Rhythm Breast Exam: Deferred Gastrointestinal: No Organomegaly, Non Tender, No Pulsatile Mass, Normal Bowel Sounds, Soft Genitalia: Deferred Pelvic: Deferred Rectal: Deferred Extremities: No calf tenderness, Normal capillary refill, Normal inspection, Normal range of motion, Non-tender, No pedal edema Musculoskeletal : Apperance: Normal Neurologic: Alert, separator tender II-XII nml as Tested, No Motor Deficits, Normal Affect, Normal Mood, No Sensory Deficits Cerebellar Function: Normal Reflexes: Normal Skin: Dry, Rash (PAPULAR AND MACULAR SKIN RASH WITH HIVES ON UPPER CHEST WALL, BILATERAL HAND, NECK AND BACK, NO TENDERNESS AND SWELLING. ), Warm Peripheral Pulses: 2+ carotid (R), 2+ carotid (L) Lymphatic: No Adenopathy Was a procedure done? Was a procedure done?: No Differential diagnosis (all) Differential Diagnosis: Drug Reaction, Urticaria X-Ray, Labs, Meds, VS Vital Signs Date Time Temp Pulse Resp B/P (MAP) Pulse Ox O2 Delivery O2 Flow Rate FiO2 10/16/24 11:20 100 18 95 Room Air 10/16/24 11:20 99.2 100 18 140/76 (97) 95 99.2 10/16/24 10:31 99.3 103 16 143/75 (97) 95 Current Medications Medications (Trade) Dose Ordered Sig/Shweta Route Start Time Stop Time Status Last Admin Methylprednisolone Sodium Succinate (Solu Medrol) 125 mg ONCE ONCE IM 10/16/24 11:15 10/16/24 11:16 DC 1/4/25 11:33 X-Ray, Labs, Meds, VS Comment EXTERNAL MEDICAL RECORDS REVIEWED: [NONE] INDEPENDENT HISTORIANS: [NONE] SOCIAL DETERMINANTS OF HEALTH: [NONE] LABS ORDERED: NONE REVIEWED AND INTERPRETED RESULTS: NONE IMAGING ORDERED: NONE TREATMENTS ORDERED: SOLU-MEDROL 125MG IM PROCEDURES PERFORMED: NONE CRITICAL CARE TIME: NONE BASED ON HISTORY OF PRESENT ILLNESS, AND PHYSICAL EXAM, PATIENT WILL BE DISCHARGED HOME. DISCUSSED PLAN FOR DISCHARGE HOME WITH RX []. MEDICATION WARNINGS GIVEN. SHARED DECISION MAKING: DISCUSSED WITH PATIENT THAT THEIR WORKUP WAS NORMAL. PATIENT INSTRUCTED TO FOLLOW UP WITH PRIMARY CARE PROVIDER IN 1-2 DAYS FOR RE-EVALUATION OF SYMPTOMS. PATIENT VERBALIZES UNDERSTANDING TO RETURN TO ED FOR NEW OR WORSENING SYMPTOMS OR IF FOLLOW UP WITH PCP CANNOT BE OBTAINED. PATIENT FEELS COMFORTABLE GOING HOME AT THIS TIME. ALL QUESTIONS ADDRESSED AT TIME OF DISCHARGE. Time of 1ST Reevaluation: 11:50 Reevaluation 1ST: Improved Patient Education/Counseling: Diagnosis, Treatment, Need For Follow Up Family Education/Counseling: Diagnosis, Treatment, Need For Follow Up Medical Screening: No EMC Exist At This Time Departure 1 Departure Time of Disposition: 11:50 Impression: Primary Impression: Allergic reaction Qualified Codes: T78.40XA - Allergy, unspecified, initial encounter Disposition: HOME / SELF CARE / HOMELESS Condition: Stable Additional Instructions: FOLLOW-UP WITH PCP IN 1 TO 2 DAYS. TAKE MEDICATIONS PRESCRIBED. RETURN TO ED FOR ANY NEW OR WORSENING SYMPTOMS. e-Prescriptions Triamcinolone Acetonide (Triamcinolone Acetonide) 0.025 % Cre 1 APPLIC TOP BID, #60 GRAMS Prov: HOWARD BREEN 10/16/24 Methylprednisolone (Medrol Dosepak) 4 Mg Shin 4 MG PO UD, #21 TAB UAD Prov: HOWARD BREEN 10/16/24 Discharged With: Self Critical Care Note Critical Care Time?: No Stability Stability form required: No Heart Score Heart Score: Heart Score Response (Comments) Value History N/A 0 EKG N/A 0 Age N/A 0 Risk Factors N/A 0 Troponin N/A 0 Total 0 I personally scribed for HOWARD BREEN ([email or web address]) on 10/16/24 at 11:19. Electron ically submitted by Noel Schuster ([email or web address]). HOWARD BREEN Oct 16, 2024 11:19
[2024-10-16 11:20] VITALS: BP 140/76; PULSE 100; RESP 18; TEMP 99.2; O2SAT 95
[2024-10-16] MEDS: methylPREDNISolone SOD SUCC 125 MG/2 ML VL IM ONE (11:33)
[2024-10-16] MEDS ORDERED: METH4PAK PO (11:40)
[2024-10-16] MEDS ORDERED: TRIA0.02 TOP (11:40)
== END 2024-10-16 12:03 | disposition home or self-care (01) ==
LOC: ER 10:18
DX: T78.49XA Other allergy, initial encounter (principal); M19.90 Unspecified osteoarthritis, unspecified site; Z79.899 Other long term (current) drug therapy; Z96.651 Presence of right artificial knee joint; Z98.890 Other specified postprocedural states; X58.XXXA Exposure to other specified factors, initial encounter
CPT/HCPCS: 96372; 99283; J2919